=== PATIENT | female | born 2000 | race Caucasian/White ===

== ENCOUNTER → 2021-09-08 | Outpatient (CLI) | payer BC ==
[~2021-09-08] MED LIST: CONTRAST GIVEN. MC PRN; IOHEXOL 240 MG/ML 50ML VIAL. PO ONE; IOHEXOL 300 MG/ML 100ML VIAL. IV ONE; diphenhydrAMINE HCL 25 MG CAPSULE PO ONE
--- NOTE | 2021-09-08 12:35 | KCIC ---
Exam Date: 09/08/2021 9:[address] ABDOMEN+PELVIS W Indication: Reason: Weight loss, diarrhea. / Spl. Instructions: 70mL Omni 300.Pt broke out in hives, 25mg oral Benadryl given to pt. / History: Pt. lost 5 pounds last week.. TECHNIQUE: CT examination of the abdomen and pelvis was performed following the administration of or al and nonionic intravenous contrast. One or more of the following dose reduction techniques were ut ilized: *Automated exposure control (AEC) *Adjustment of mA and/or kV according to patient size *Use of iterative reconstruction technique *CT scan done according to ALARA, or ALARA/IMAGE GENTLY FINDINGS: The visualized lung bases are clear. The liver, gallbladder, spleen, pancreas, adrenal glands and kidneys are normal. Urinary bladder is normal in appearance. There is no bowel obstruction or inflammation. The appendix is normal. No significant atherosclerotic calcifications are seen. No lymphadenopathy or ascites is seen. Osseous structures are intact. IMPRESSION: No evidence of acute intra-abdominal pathology. Note: The patient experienced hives following the administration of intravenous contrast, but without difficulty breathing. The patient was administered 25 mg Benadryl by mouth without further incident . Electronically signed by: Juan Daniel Barone MD (09/08/2021 12:33 PM) [id number]
== END ==
LOC: KCIC CT 08:32
PROVIDERS: ATTEND Internal Medicine Gastroenterology
DX: R19.7 Diarrhea, unspecified (principal); R63.4 Abnormal weight loss
CPT/HCPCS: 74177; Q0163; Q9966; Q9967